=== PATIENT | male | born 1990 | race Caucasian/White ===

== ENCOUNTER → 2016-05-17 | Outpatient (CLI) | payer OTHER, MEDICAID ==
[2016-05-17 14:27] LABS: CREATININE RESULT 0.84 mg/dL (0.52-1.25); POTASSIUM 3.9 mmol/L (3.6-5.0)
== END ==
LOC: OD 13:01
PROVIDERS: ATTEND Family Medicine
DX: E86.0 Dehydration (principal); Q90.9 Down syndrome, unspecified
CPT/HCPCS: 36415; 82565; 84132

== ENCOUNTER → 2017-05-29 | Outpatient (CLI) | payer OTHER, MEDICAID ==
[2017-05-29 09:44] LABS: ANION GAP 11 (5-19); BLOOD UREA NITROGEN 18 mg/dL (7-20); CALCIUM 9.4 mg/dL (8.4-10.2); CARBON DIOXIDE 30 mmol/L (22-30); CHLORIDE 102 mmol/L (98-107); CHOLESTEROL 160.66 mg/dL (0-200); GLUCOSE 86 mg/dL (75-110); POTASSIUM 4.1 mmol/L (3.6-5.0); SODIUM 142.9 mmol/L (137-145); TRIGLYCERIDES 61 mg/dL (<150)
[2017-05-29 09:54] LABS: DIRECT LDL 100 mg/dL (<100)
== END ==
LOC: OD 08:02
PROVIDERS: ATTEND Family Medicine
DX: E03.9 Hypothyroidism, unspecified (principal); Z79.899 Other long term (current) drug therapy; Q90.9 Down syndrome, unspecified; E87.6 Hypokalemia
CPT/HCPCS: 36415; 80048; 80061; 83036; 84443